=== PATIENT | male | born 1990 | race Caucasian/White ===

== ENCOUNTER 2017-05-28 13:27 | Emergency (ER) | payer OTHER ==
[~2017-05-28] VITALS: Ht 182.9 cm; Wt 63.5 kg
--- NOTE | ~2017-05-28 | CR17 ---
[facility]. [facility] A Service of [facility] & [facility] RADIOLOGY TEXT RESULTS PATIENT: KELSY GLEZ LOCATION: SED : [birth year] UNIT #: [id number] AGE: [address]: Rosanna Rodriguez APRN SEX: M ORDER DR: [id number] [address] [address] [id number] E MR#: [id number] Acc #: [id number] NAME: KELSY GLEZ : 1990 SEX: M STUDY DATE/TIME: 05/28/2017 13:57 UNIT: SED ROOM: STUDY DESCRIPTION: CR Ankle 2 Views Lt Attending Physician: Rosanna Rodriguez A.P.R.N. Ordering Physician: Rosanna Amador A.P.R.N. Primary Care Physician: Mor Welsh M.D. MEDICAL IMAGING REPORT This report is preliminary unless electronic signature is present. EXAM Left ankle. INDICATIONS Left ankle pain for 2 days. FINDINGS Two views of the left ankle without comparison. There is no acute fracture or dislocation. There is some soft tissue swelling over the lateral ankle. No foreign body. IMPRESSION Lateral ankle swelling. No fracture. Dictated by... Antwon Kirkpatrick M.D. THIS IS AN ELECTRONICALLY VERIFIED REPORT Antwon Kirkpatrick M.D. at 05/29/2017 1:26 PM SALVADOR/diya TD: 05/29/2017 08:25 JOB #: [id number] MEDICAL IMAGING REPORT Page 1 of 1
--- NOTE | ~2017-05-28 | CR63 ---
[facility]. [facility] A Service of [facility] & [facility] RADIOLOGY TEXT RESULTS PATIENT: KELSY GLEZ LOCATION: SED : [birth year] UNIT #: [id number] AGE: [address]: Rosanna Rodriguez APRN SEX: M ORDER DR: [id number] [address] [address] [id number] E MR#: [id number] Acc #: [id number] NAME: KELSY GLEZ : 1990 SEX: M STUDY DATE/TIME: 05/28/2017 13:57 UNIT: SED ROOM: STUDY DESCRIPTION: CR Chest 2 View Attending Physician: Rosanna Rodriguez A.P.R.N. Ordering Physician: Rosanna Amador A.P.R.N. Primary Care Physician: Mor Welsh M.D. MEDICAL IMAGING REPORT This report is preliminary unless electronic signature is present. EXAM Two-view chest. INDICATIONS Cough. Left rib pain. FINDINGS PA and lateral views of the chest compared to 10/07/2012. Heart and mediastinal contours are normal. There is dense consolidation in the left upper lobe, left lower lobe, and right lower lobe. This is compatible with a multifocal pneumonia. Followup chest radiographs are recommended to document resolution. IMPRESSION Multifocal pneumonia. Follow up radiographs recommended to document resolution. Dictated by... Antwon Kirkpatrick M.D. THIS IS AN ELECTRONICALLY VERIFIED REPORT Antwon Kirkpatrick M.D. at 05/29/2017 1:26 PM SALVADOR/diya TD: 05/29/2017 08:21 JOB #: [id number] MEDICAL IMAGING REPORT Page 1 of 1
[~2017-05-28 13:27] MED LIST: IBUPROFEN800 MG PO; LORTAB 5/500 TA1 TA1 PO
[2017-05-28 14:47] LABS: BASOPHIL# 0.1 X10e3 (0-0.3); BASOPHIL% 0.8 % (0-2.5); EOSINOPHIL# 0.1 X10e3 (0-0.7); EOSINOPHIL% 0.7 % (0.0-7.0); HEMATOCRIT 33.6 % (38.0-50.0); HEMOGLOBIN 11.5 gm/dL (13.0-16.0); LYMPHOCYTE# 1.8 X10e3 (1.0-3.5); LYMPHOCYTE% 11.3 % (17.0-45.0); MEAN CELL VOLUME 77.2 FL (83-96); MEAN CORPUSCULAR HEMOGLOBIN 26.4 PG (28-34); MEAN CORPUSCULAR HGB CONC 34.2 g/dL (30-36); MEAN PLATELET VOLUME 7.7 FL (6.5-11.5); MONOCYTE% 6.6 % (3.0-12.0); NEUTROPHIL# 12.6 X10e3 (1.5-7.1); NEUTROPHIL% 80.6 % (40-75); PLATELET COUNT 317 X10e3 (140-420); RED BLOOD COUNT 4.35 X10e (3.90-5.60); WHITE BLOOD COUNT 15.7 X10e3 (4.0-10.5)
[2017-05-28 14:50] LABS: DIFF IND NO
[2017-05-28 15:03] LABS: BUN/CREATININE RATIO 14.28; CALCIUM SERUM 8.3 mg/dL (8.4-10.2); CREATININE SERUM 0.7 mg/dL (0.6-1.4); GLOM FILT RATE Estimated 131.2 mL/min (>60); POTASSIUM 3.8 mmol/L (3.5-5.1)
[2017-05-28 17:05] LABS: AMPHETAMINE POS (NEG); BARBITURATES NEG (NEG); BENZODIAZEPINES NEG (NEG); COCAINE NEG (NEG); MARIJUANA NEG (NEG); OPIATES POS (NEG); TRICYCLIC ANTIDEPRESSANTS NEG (NEG); U METHADONE NEG (NEG)
== END 2017-05-28 20:05 ==
LOC: SED 13:27
PROVIDERS: Nurse Practitioner
DX: J18.9 Pneumonia, unspecified organism (principal); F15.10 Other stimulant abuse, uncomplicated; F11.10 Opioid abuse, uncomplicated; F17.210 Nicotine dependence, cigarettes, uncomplicated; Z98.890 Other specified postprocedural states
CPT/HCPCS: 36415; 71020; 73600; 80048; 80307; 83605; 83880; 85025; 94640; 96361; 96365; 99285; J0696